=== PATIENT | female | born 1985 | race American Indian/Alaskan Native ===

== ENCOUNTER 2019-02-02 20:42 | Inpatient (IN) | payer OTHER ==
[2019-02-02 21:59] LABS: Basophils % (Auto) 0.7 % (0.0-1.8); Eosinophils % (Auto) 0.1 % (0.0-4.3); Hematocrit 30.4 % (30.3-42.9); Hemoglobin 10.1 gm/dl (10.1-14.3); Lymphocytes # (Auto) 0.8 K/mm3 (1.2-5.4); Lymphocytes % (Auto) 14.3 % (13.4-35.0); Mean Corpuscular HGB Conc 33 % (30-34); Mean Corpuscular Hemoglobin 28 pg (28-32); Mean Corpuscular Volume 85 fl (79-97); Monocytes # (Auto) 0.3 K/mm3 (0.0-0.8); Monocytes % (Auto) 5.8 % (0.0-7.3); Platelet Count 450 K/mm3 (140-440); Red Cell Distribution Width 15.3 % (13.2-15.2)
[2019-02-02 22:12] LABS: BUN/Creatinine Ratio 16; Blood Urea Nitrogen 11 mg/dL (7-17); Calcium 9.5 mg/dL (8.4-10.2); Hemolysis Index 41
[2019-02-02] MEDS ORDERED: NACL 0.9% 1000 ML 1,000 ML IV ONE (22:16)
--- NOTE | 2019-02-02 22:16 | Emergency Department Report ---
ED General Adult HPI - General Chief complaint: Sickle Cell Crisis Stated complaint: SICKLE CRISIS Time Seen by Provider: 02/02/19 22:14 Source: patient Mode of arrival: Ambulatory Limitations: No Limitations - History of Present Illness Initial comments: 33-year-old female with a history of sickle cell anemia presents with the complaint of body pain. Patient states her pain from her sickle cell is primarily in her bilateral legs and lower back. Patient states that she had one episode of vomiting as well. Patient states she was recently admitted for sickle cell complications at [place]. Patient states she took her Toradol and Dilaudid 2 mg therapy with minimal relief of her pain and thus presented here. Patient states the pain is worsened since 4 PM. Patient states that she has no chest pain or shortness of breath. - Related Data Previous Rx's Medication Instructions Recorded Last Taken Type Ibuprofen [Motrin] 400 mg PO Q8H PRN #30 tablet 06/21/14 06/28/14 07:00 Rx Acetaminophen/Codeine 1 tab PO Q6H PRN #20 tab 06/28/14 Unknown Rx [Acetaminophen-Codeine #3 TAB] Bisacodyl [Dulcolax] 10 mg PO DAILY PRN #9 tab 01/21/15 Unknown Rx Ciprofloxacin HCl [Cipro] 500 mg PO Q12H #14 tab 01/21/15 Unknown Rx Ibuprofen [Motrin 800 MG tab] 800 mg PO Q8HR PRN #12 tablet 01/21/15 Unknown Rx HYDROcodone/APAP 5-325 [[place] 1 each PO Q4HR PRN #24 tablet 10/05/15 Unknown Rx 5/325] methOCARBAMOL [Robaxin TAB] 1,500 mg PO TID PRN #15 tab 11/15/15 Unknown Rx Promethazine [Phenergan TAB] 25 mg PO Q6HR PRN #20 tab 04/05/16 Unknown Rx Promethazine [Phenergan] 25 mg HI Q6HR PRN #10 supp.rect 04/05/16 Unknown Rx Sulfamethoxazole/Trimethoprim 1 each PO BID #20 tablet 04/05/16 Unknown Rx [Bactrim DS TAB] traMADol [Ultram] 50 mg PO Q6HR PRN #14 tablet 04/05/16 Unknown Rx oxyCODONE /ACETAMINOPHEN [Percocet 1 tab PO Q6HR PRN #15 tablet 11/01/18 Unknown Rx 5/325] Oxycodone HCl/Acetaminophen 1 each PO Q6HR PRN #12 tablet 11/26/18 Unknown Rx [Percocet 7.5/325 mg] Potassium Chloride 10 meq PO DAILY #5 capsule.er 11/26/18 Unknown Rx predniSONE [Deltasone] 20 mg PO BID #10 tab 12/03/18 Unknown Rx Folic Acid [Folvite] 1 mg PO QDAY #90 tablet 01/10/19 Unknown Rx Ketorolac [Toradol] 10 mg PO Q6H PRN #30 tablet 01/10/19 Unknown Rx oxyCODONE [roxiCODONE] 10 mg PO Q4H PRN 4 Days #20 tablet 01/10/19 Unknown Rx Allergies Allergy/AdvReac Type Severity Reaction Status Date / Time amoxicillin Allergy Swelling Verified 02/02/19 21:16 fentanyl Allergy Swelling Verified 02/02/19 21:16 prednisone AdvReac Hives Verified 02/02/19 21:16 ED Review of Systems ROS: Stated complaint: SICKLE CRISIS Other details as noted in HPI Constitutional: weakness Eyes: denies: eye pain, eye discharge, vision change ENT: denies: ear pain, throat pain Respiratory: denies: cough, shortness of breath, wheezing Cardiovascular: denies: chest pain, palpitations Endocrine: no symptoms reported Gastrointestinal: denies: abdominal pain, nausea, diarrhea Genitourinary: denies: urgency, dysuria, discharge Musculoskeletal: myalgia. denies: back pain, joint swelling, arthralgia Skin: denies: rash, lesions Neurological: denies: headache, weakness, paresthesias Psychiatric: denies: anxiety, depression Hematological/Lymphatic: denies: easy bleeding, easy bruising ED Past Medical Hx - Past Medical History Previous Medical History?: Yes Hx Sickle Cell Disease: Yes Additional medical history: ovarian cysts, miscarriage - Surgical History Past Surgical History?: Yes Additional Surgical History: 2006, 2008, 2009, 2012. tubal ligation 2012 - Social History Smoking Status: Never Smoker Substance Use Type: None - Medications Home Medications: Home Medications Medication Instructions Recorded Confirmed Last Taken Type Ibuprofen [Motrin] 400 mg PO Q8H PRN #30 tablet 06/21/14 06/28/14 06/28/14 07:00 Rx Acetaminophen/Codeine 1 tab PO Q6H PRN #20 tab 06/28/14 Unknown Rx [Acetaminophen-Codeine #3 TAB] Bisacodyl [Dulcolax] 10 mg PO DAILY PRN #9 tab 01/21/15 Unknown Rx Ciprofloxacin HCl [Cipro] 500 mg PO Q12H #14 tab 01/21/15 Unknown Rx Ibuprofen [Motrin 800 MG tab] 800 mg PO Q8HR PRN #12 tablet 01/21/15 Unknown Rx HYDROcodone/APAP 5-325 [[place] 1 each PO Q4HR PRN #24 tablet 10/05/15 Unknown Rx 5/325] methOCARBAMOL [Robaxin TAB] 1,500 mg PO TID PRN #15 tab 11/15/15 Unknown Rx Promethazine [Phenergan TAB] 25 mg PO Q6HR PRN #20 tab 04/05/16 Unknown Rx Promethazine [Phenergan] 25 mg HI Q6HR PRN #10 supp.rect 04/05/16 Unknown Rx Sulfamethoxazole/Trimethoprim 1 each PO BID #20 tablet 04/05/16 Unknown Rx [Bactrim DS TAB] traMADol [Ultram] 50 mg PO Q6HR PRN #14 tablet 04/05/16 Unknown Rx oxyCODONE /ACETAMINOPHEN [Percocet 1 tab PO Q6HR PRN #15 tablet 11/01/18 Unknown Rx 5/325] Oxycodone HCl/Acetaminophen 1 each PO Q6HR PRN #12 tablet 11/26/18 Unknown Rx [Percocet 7.5/325 mg] Potassium Chloride 10 meq PO DAILY #5 capsule.er 11/26/18 Unknown Rx predniSONE [Deltasone] 20 mg PO BID #10 tab 12/03/18 Unknown Rx Folic Acid [Folvite] 1 mg PO QDAY #90 tablet 01/10/19 Unknown Rx Ketorolac [Toradol] 10 mg PO Q6H PRN #30 tablet 01/10/19 Unknown Rx oxyCODONE [roxiCODONE] 10 mg PO Q4H PRN 4 Days #20 tablet 01/10/19 Unknown Rx ED Physical Exam - General Limitations: No Limitations General appearance: alert, other (mildly uncomfortable; mild distress) - Head Head exam: Present: atraumatic, normocephalic - Eye Eye exam: Present: normal appearance - ENT ENT exam: Present: mucous membranes moist - Neck Neck exam: Present: normal inspection - Respiratory Respiratory exam: Present: normal lung sounds bilaterally. Absent: respiratory distress - Cardiovascular Cardiovascular Exam: Present: regular rate, normal rhythm. Absent: systolic murmur, diastolic murmur, rubs, gallop - GI/Abdominal GI/Abdominal exam: Present: soft, normal bowel sounds - Extremities Exam Extremities exam: Present: normal inspection - Back Exam Back exam: Present: normal inspection - Neurological Exam Neurological exam: Present: alert, oriented X3 - Psychiatric Psychiatric exam: Present: normal affect, normal mood - Skin Skin exam: Present: warm, dry, intact, normal color. Absent: rash ED Course Vital Signs 02/02/19 02/02/19 02/02/19 21:16 23:03 23:15 Temperature 99 F Pulse Rate 122 H Respiratory 18 Rate Blood Pressure 105/73 109/63 O2 Sat by Pulse 98 100 96 Oximetry 02/02/19 02/02/19 02/03/19 23:30 23:45 00:00 Temperature Pulse Rate Respiratory Rate Blood Pressure 104/63 111/61 111/61 O2 Sat by Pulse Oximetry 02/03/19 02/03/19 02/03/19 00:15 00:30 00:45 Temperature Pulse Rate Respiratory Rate Blood Pressure 110/67 112/68 118/78 O2 Sat by Pulse Oximetry 02/03/19 02/03/19 02/03/19 01:00 01:17 01:30 Temperature Pulse Rate Respiratory Rate Blood Pressure 111/73 123/65 124/71 O2 Sat by Pulse Oximetry 02/03/19 02/03/19 02/03/19 01:51 02:00 02:15 Temperature Pulse Rate Respiratory Rate Blood Pressure 112/68 113/70 113/70 O2 Sat by Pulse 100 Oximetry ED Medical Decision Making - Lab Data Result diagrams: 02/02/19 21:49 02/02/19 21:49 - Medical Decision Making Patient received fluid hydration with normal saline as well as 4 mg of morphine and 4 mg of Zofran initially. Patient then received 3 rounds of Dilaudid 2 mg and states she continues to have pain and thus presented here to the emergency department for evaluation. Patient to be admitted to the hospitalist service for continued management and treatment as she continues to be in discomfort despite this aggressive management. - Differential Diagnosis Sickle Cell Anemia; Sickle Cell Pain crisis Critical care attestation.: If time is entered above; I have spent that time in minutes in the direct care of this critically ill patient, excluding procedure time. ED Disposition Clinical Impression: Sickle cell anemia Disposition: DC-01 TO HOME OR SELFCARE Is pt being admited?: Yes Does the pt Need Aspirin: No Condition: Fair Time of Disposition: 03:25 Print Language: NORWEGIAN
[2019-02-02] MEDS ORDERED: MORPHINE IV ONE (22:30)
[2019-02-02] MEDS ORDERED: ZOFRAN IV ONE (22:30)
[2019-02-02] MEDS ORDERED: DILAUDID IV ONE (23:28)
[2019-02-02] MEDS ORDERED: BANOPHEN PO ONE (23:29)
[2019-02-03] MEDS ORDERED: DILAUDID IV ONE ×2 (00:25→02:25)
[2019-02-03] MEDS ORDERED: NACL 0.9% 1000 ML 1,000 ML IV ONE (03:20)
--- NOTE | 2019-02-03 03:58 | History and Physical Report ---
History of Present Illness Date of examination: 02/03/19 Date of admission: 02/03/2019 Chief complaint: Sickle cell crisis History of present illness: 33-year-old -[place]vian female with history of sickle cell who presents to [facility] ED with complaints of back pain and bilateral leg pain for the past day. Patient states that her pain is in both legs and back. Also she admits to having nausea and emesis 1. She attempted to take Toradol and Dilaudid 2 mg w ith minimal relief, so she decided to come to the ED for further evaluation and treatment. Patient reports that she was recently admitted at [facility] for sickle cell crisis. 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 A review of medical records shows this patient's second admission within the past month, and her 7th visit to our facility since October 2018. Denies: Shortness of breath, fever, nausea, vomiting, diarrhea, headache, chest pain, cough, or recent sick contact Past History Past Medical History: other (sickle cell, ovarian cyst) Past Surgical History: Other ( (x3 (2006,2007,2009,2012); tubal ligation) Social history: lives with family (marjan with family (recently relocated from [facility] to [place] lives with cousin in [place])) Family history: no significant family history Medications and Allergies Allergies Allergy/AdvReac Type Severity Reaction Status Date / Time amoxicillin Allergy Swelling Verified 02/02/19 21:16 fentanyl Allergy Swelling Verified 02/02/19 21:16 prednisone AdvReac Hives Verified 02/02/19 21:16 Home Medications Medication Instructions Recorded Confirmed Last Taken Type Ibuprofen [Motrin] 400 mg PO Q8H PRN #30 tablet 06/21/14 06/28/14 06/28/14 07:00 Rx Acetaminophen/Codeine 1 tab PO Q6H PRN #20 tab 06/28/14 Unknown Rx [Acetaminophen-Codeine #3 TAB] Bisacodyl [Dulcolax] 10 mg PO DAILY PRN #9 tab 01/21/15 Unknown Rx Ciprofloxacin HCl [Cipro] 500 mg PO Q12H #14 tab 01/21/15 Unknown Rx Ibuprofen [Motrin 800 MG tab] 800 mg PO Q8HR PRN #12 tablet 01/21/15 Unknown Rx HYDROcodone/APAP 5-325 [[place] 1 each PO Q4HR PRN #24 tablet 10/05/15 Unknown Rx 5/325] methOCARBAMOL [Robaxin TAB] 1,500 mg PO TID PRN #15 tab 11/15/15 Unknown Rx Promethazine [Phenergan TAB] 25 mg PO Q6HR PRN #20 tab 04/05/16 Unknown Rx Promethazine [Phenergan] 25 mg DE Q6HR PRN #10 supp.rect 04/05/16 Unknown Rx Sulfamethoxazole/Trimethoprim 1 each PO BID #20 tablet 04/05/16 Unknown Rx [Bactrim DS TAB] traMADol [Ultram] 50 mg PO Q6HR PRN #14 tablet 04/05/16 Unknown Rx oxyCODONE /ACETAMINOPHEN [Percocet 1 tab PO Q6HR PRN #15 tablet 11/01/18 Unknown Rx 5/325] Oxycodone HCl/Acetaminophen 1 each PO Q6HR PRN #12 tablet 11/26/18 Unknown Rx [Percocet 7.5/325 mg] Potassium Chloride 10 meq PO DAILY #5 capsule.er 11/26/18 Unknown Rx predniSONE [Deltasone] 20 mg PO BID #10 tab 12/03/18 Unknown Rx Folic Acid [Folvite] 1 mg PO QDAY #90 tablet 01/10/19 Unknown Rx Ketorolac [Toradol] 10 mg PO Q6H PRN #30 tablet 01/10/19 Unknown Rx oxyCODONE [roxiCODONE] 10 mg PO Q4H PRN 4 Days #20 tablet 01/10/19 Unknown Rx Active Meds: Active Medications Acetaminophen/Hydrocodone Bitart ([place] 10/325) 1 each PO Q4H PRN PRN Reason: Pain, Moderate (4-6) Diphenhydramine HCl (Benadryl) 25 mg IV Q6H PRN PRN Reason: Itching Enoxaparin Sodium (Lovenox) 40 mg SUB-Q QDAY KIM Folic Acid (Folvite) 1 mg PO QDAY KIM Sodium Chloride (Nacl 0.9% 1000 Ml) 1,000 mls @ 999 mls/hr IV BOLUS ONE Stop: 02/03/19 04:20 Dextrose/Sodium Chloride (D5/0.45ns) 1,000 mls @ 125 mls/hr IV DIRECT KIM Morphine Sulfate (Morphine) 4 mg IV Q2H PRN PRN Reason: Pain , Severe (7-10) Stop: 02/04/19 03:46 Multivitamins (Theragran Tab) 1 each PO QDAY KIM Ondansetron HCl (Zofran) 4 mg IV Q8H PRN PRN Reason: Nausea And Vomiting Oxycodone HCl (Oxycontin) 20 mg PO Q8HR KIM Senna (Senokot) 17.2 mg PO QHS KIM Review of Systems All systems: negative (reviewed and no additional remarkable complaints except as noted below) Musculoskeletal: low back pain, other (leg pain, joint stiffness) Exam - Physical Exam Narrative exam: Physical exam General appearance: Present: mild distress, alert and oriented 3, well-develope d -[place]vian female - EENT Eyes: Present: PERRL, EOM intact ENT: hearing intact, normal dentition - Neck Neck: Present: supple, normal ROM - Respiratory Respiratory effort: Non-labored Respiratory: Clear throughout - Cardiovascular Heart rate: 88 (bpm) Rhythm: regular Heart Sounds: Present: S1 & S2. Absent: rub, click - Extremities Extremities: no ischemia, pulses intact, - Peripheral Assessment Peripheral Pulses: within normal limits - Abdominal General gastrointestinal: soft, non-tender, normal bowel sounds - Integumentary Integumentary: Present: warm, dry - Musculoskeletal Musculoskeletal: generalized weakness, joint stiffness -Neurological Neurological: CN II-XII intact - Psychiatric Psychiatric: cooperative - Constitutional Vitals: Temp Pulse Resp BP Pulse Ox 99 F 122 H 18 113/70 100 02/02/19 21:16 02/02/19 21:16 02/02/19 21:16 02/03/19 02:15 02/03/19 02:15 Results - Labs CBC & Chem 7: 02/02/19 21:49 02/02/19 21:49 Labs: Laboratory Last Values WBC 5.8 K/mm3 (4.5-11.0) 02/02/19 21:49 RBC 3.60 M/mm3 (3.65-5.03) L 02/02/19 21:49 Hgb 10.1 gm/dl (10.1-14.3) 02/02/19 21:49 Hct 30.4 % (30.3-42.9) 02/02/19 21:49 MCV 85 fl (79-97) 02/02/19 21:49 MCH 28 pg (28-32) 02/02/19 21:49 MCHC 33 % (30-34) 02/02/19 21:49 RDW 15.3 % (13.2-15.2) H 02/02/19 21:49 Plt Count 450 K/mm3 (140-440) H 02/02/19 21:49 Lymph % (Auto) 14.3 % (13.4-35.0) 02/02/19 21:49 [place] % (Auto) 5.8 % (0.0-7.3) 02/02/19 21:49 Eos % (Auto) 0.1 % (0.0-4.3) 02/02/19 21:49 Baso % (Auto) 0.7 % (0.0-1.8) 02/02/19 21:49 Lymph # 0.8 K/mm3 (1.2-5.4) L 02/02/19 21:49 [place] # 0.3 K/mm3 (0.0-0.8) 02/02/19 21:49 Eos # 0.0 K/mm3 (0.0-0.4) 02/02/19 21:49 Baso # 0.0 K/mm3 (0.0-0.1) 02/02/19 21:49 Seg Neutrophils % 79.1 % (40.0-70.0) H 02/02/19 21:49 Seg Neutrophils # 4.6 K/mm3 (1.8-7.7) 02/02/19 21:49 Percent Retic 1.22 % (0.78-2.58) 02/02/19 21:49 Sodium 142 mmol/L (137-145) 02/02/19 21:49 Potassium 4.0 mmol/L (3.6-5.0) 02/02/19 21:49 Chloride 103.7 mmol/L (98-107) 02/02/19 21:49 Carbon Dioxide 25 mmol/L (22-30) 02/02/19 21:49 17 mmol/L 02/02/19 21:49 BUN 11 mg/dL (7-17) 02/02/19 21:49 0.7 mg/dL (0.7-1.2) 02/02/19 21:49 Estimated GFR > 60 ml/min 02/02/19 21:49 16 % 02/02/19 21:49 Glucose 108 mg/dL (65-100) H 02/02/19 21:49 Calcium 9.5 mg/dL (8.4-10.2) 02/02/19 21:49 Assessment and Plan Assessment and plan: 33-year-old -[place]vian female with history of sickle cell who presents to [facility] ED with complaints of back pain and bilateral leg pain for the past day. On presentation she has hemoglobin 10.1 and reticular count of 1.22. While in the ED, she received IV hydration, IV morphine 4mgx1, IV Zofran 4mg with no relief. She was then given IV Dilaudid 2mg x3, but continues to c/o pain. Will admit to medical floor. 1. Sickle cell crisis -Hydrate with IVF -Monitor reticular count (1.22 on admission) -Monitor Hgb -Monitor electrolytes, replete as needed -Start Folic acid and multivitamin 2. Acute pain-related to sickle cell crisis -Pain management 3. DVT PPX -on Lovenox Advance Directives: No VTE prophylaxis?: Chemical Plan of care discussed with patient/family: Yes
[2019-02-03] MEDS ORDERED: D5/0.45NS 1,000 ML IV SCH (04:00)
[2019-02-03] MEDS ORDERED: IBUPROFEN PO SCH (06:00)
[2019-02-03] MEDS ORDERED: IBUPROFEN ONE (06:30)
[2019-02-03] MEDS: OxyCONTIN PO SCH ×3 (06:45→23:18)
[2019-02-03] MEDS ORDERED: MORPHINE ONE (08:46)
[2019-02-03] MEDS: MORPHINE IV PRN ×2 (08:50→11:54)
[2019-02-03] MEDS ORDERED: BENADRYL ONE (09:04)
[2019-02-03] MEDS: BENADRYL IV PRN ×3 (09:04→21:40)
[2019-02-03] MEDS ORDERED: DIPRIVAN 10 MG/ML IV ONE ×2 (11:33)
[2019-02-03] MEDS: THERAGRAN Tab PO SCH (11:40)
[2019-02-03] MEDS: LOVENOX SUB-Q SCH (11:40)
[2019-02-03] MEDS: FOLVITE PO SCH (11:41)
[2019-02-03] MEDS: D5NS 0.2% 1,000 ML IV SCH (14:22)
--- NOTE | 2019-02-03 15:14 | Progress Note ---
Assessment and Plan Assessment and plan: Patient is a 33-year-old -Finnish female with history of sickle cell who presents to [facility] ED with complaints of back pain and bilateral leg pain for the past day. On presentation she has hemoglobin 10.1 and retic count was 1.22. While in the ED, she received IV hydration, IV morphine 4mgx1, IV Zofran 4mg without relief. She was then given IV Dilaudid 2mg x3, but continues to c/o pain. Will admit to medical floor. 1. Sickle cell crisis -Hydrate with IVF -Monitor reticular count (1.22 on admission) -Monitor Hgb -Monitor electrolytes, replete as needed -Start Folic acid and multivitamin 2. Acute pain-related to sickle cell crisis -Pain management 3. DVT PPX -on Lovenox Advance Directives: No VTE prophylaxis?: Chemical Plan of care discussed with patient/family: Yes History Interval history: Patient was seen and examined. Follow-up on current diagnosis of SS pains crisis with extermity bone pains. No overnight events reported to me. Patient denies any chest pain, shortness breath, nausea/vomiting or severe headaches. Imaging, nursing note, chart, labs and old chart reviewed. Discussed with patient. Hospitalist Physical - Physical exam Narrative exam: Gen: WDWN, NAD, Awake, Alert, Orientated HEENT: NCAT, EOMI, PERRL, OP Clear Neck: supple, no adenopathy, no thyromegaly, no JVD CVS/Heart: RRR, normal S1S2, pulses present bilaterally Chest/Lungs: CTA B, Symmetrical chest expansion, good air entry bilaterally GI/Abdomen: soft, NTND, good bowel sounds, no guarding or rebound /Bladder: no suprapubic tenderness, no CVA or paraspinal tenderness Extermity/Skin: no c/c/e, no obvious rash MSK: FROM x 4 Neuro: CN 2-12 grossly intact, no new focal deficits Psych: calm - Constitutional Vitals: Temp Pulse Resp BP Pulse Ox 98.2 F 81 20 117/75 100 02/03/19 12:46 02/03/19 12:46 02/03/19 12:46 02/03/19 12:46 02/03/19 12:46 Results - Labs CBC & Chem 7: 02/02/19 21:49 02/02/19 21:49 Labs: Laboratory Last Values WBC 5.8 K/mm3 (4.5-11.0) 02/02/19 21:49 RBC 3.60 M/mm3 (3.65-5.03) L 02/02/19 21:49 Hgb 10.1 gm/dl (10.1-14.3) 02/02/19 21:49 Hct 30.4 % (30.3-42.9) 02/02/19 21:49 MCV 85 fl (79-97) 02/02/19 21:49 MCH 28 pg (28-32) 02/02/19 21:49 MCHC 33 % (30-34) 02/02/19 21:49 RDW 15.3 % (13.2-15.2) H 02/02/19 21:49 Plt Count 450 K/mm3 (140-440) H 02/02/19 21:49 Lymph % (Auto) 14.3 % (13.4-35.0) 02/02/19 21:49 [place] % (Auto) 5.8 % (0.0-7.3) 02/02/19 21:49 Eos % (Auto) 0.1 % (0.0-4.3) 02/02/19 21:49 Baso % (Auto) 0.7 % (0.0-1.8) 02/02/19 21:49 Lymph # 0.8 K/mm3 (1.2-5.4) L 02/02/19 21:49 [place] # 0.3 K/mm3 (0.0-0.8) 02/02/19 21:49 Eos # 0.0 K/mm3 (0.0-0.4) 02/02/19 21:49 Baso # 0.0 K/mm3 (0.0-0.1) 02/02/19 21:49 Seg Neutrophils % 79.1 % (40.0-70.0) H 02/02/19 21:49 Seg Neutrophils # 4.6 K/mm3 (1.8-7.7) 02/02/19 21:49 Percent Retic 1.22 % (0.78-2.58) 02/02/19 21:49 Sodium 142 mmol/L (137-145) 02/02/19 21:49 Potassium 4.0 mmol/L (3.6-5.0) 02/02/19 21:49 Chloride 103.7 mmol/L (98-107) 02/02/19 21:49 Carbon Dioxide 25 mmol/L (22-30) 02/02/19 21:49 17 mmol/L 02/02/19 21:49 BUN 11 mg/dL (7-17) 02/02/19 21:49 0.7 mg/dL (0.7-1.2) 02/02/19 21:49 Estimated GFR > 60 ml/min 02/02/19 21:49 16 % 02/02/19 21:49 Glucose 108 mg/dL (65-100) H 02/02/19 21:49 Calcium 9.5 mg/dL (8.4-10.2) 02/02/19 21:49 Active Medications - Current Medications Current Medications: Generic Name Dose Route Start Last Admin Trade Name Freq PRN Reason Stop Dose Admin Acetaminophen/Hydrocodone Bitart 1 each 02/03/19 03:47 [place] 10/325 PO Q4H PRN Pain, Moderate (4-6) Diphenhydramine HCl 25 mg 02/03/19 03:47 02/03/19 09:04 Benadryl IV 25 mg Q6H PRN Administration Itching Enoxaparin Sodium 40 mg 02/03/19 10:00 02/03/19 11:40 Lovenox SUB-Q 40 mg QDAY KIM Administration Folic Acid 1 mg 02/03/19 10:00 02/03/19 11:41 Folvite PO 1 mg QDAY KIM Administration Hydromorphone HCl 2 mg 02/03/19 12:38 Dilaudid IV Q3H PRN Pain , Severe (7-10) Dextrose/Sodium Chloride 1,000 mls @ 100 mls/hr 02/03/19 13:00 02/03/19 14:22 D5ns 0.2% IV 100 mls/hr DIRECT KIM Administration Multivitamins 1 each 02/03/19 10:00 02/03/19 11:40 Theragran Tab PO 1 each QDAY KIM Administration Ondansetron HCl 4 mg 02/03/19 03:47 Zofran IV Q8H PRN Nausea And Vomiting Oxycodone HCl 20 mg 02/03/19 06:00 02/03/19 14:18 Oxycontin PO 20 mg Q8HR KIM Administration Senna 17.2 mg 02/03/19 22:00 Senokot PO QHS KIM
[2019-02-03] MEDS: DILAUDID IV PRN ×2 (15:35→20:06)
[2019-02-03] MEDS: SENOKOT PO SCH (23:16)
[2019-02-04] MEDS: ZOFRAN IV PRN ×3 (01:31→21:11)
[2019-02-04] MEDS: DILAUDID IV PRN ×6 (01:32→21:08)
[2019-02-04 03:39] LABS: Basophils % (Auto) 0.7 % (0.0-1.8); Eosinophils # (Auto) 0.1 K/mm3 (0.0-0.4); Hematocrit 28.1 % (30.3-42.9); Lymphocytes # (Auto) 1.7 K/mm3 (1.2-5.4); Lymphocytes % (Auto) 36.1 % (13.4-35.0); Mean Corpuscular HGB Conc 32 % (30-34); Mean Corpuscular Hemoglobin 27 pg (28-32); Mean Corpuscular Volume 85 fl (79-97); Monocytes # (Auto) 0.5 K/mm3 (0.0-0.8); Monocytes % (Auto) 10.7 % (0.0-7.3); Platelet Count 338 K/mm3 (140-440); Red Cell Distribution Width 15.3 % (13.2-15.2)
[2019-02-04] MEDS: OxyCONTIN PO SCH ×3 (06:18→21:08)
[2019-02-04] MEDS: THERAGRAN Tab PO SCH (10:39)
[2019-02-04] MEDS: FOLVITE PO SCH (10:39)
[2019-02-04] MEDS: LOVENOX SUB-Q SCH (10:40)
[2019-02-04] MEDS: BENADRYL IV PRN ×2 (11:07→17:47)
--- NOTE | 2019-02-04 14:22 | Progress Note ---
Assessment and Plan Assessment and plan: Patient is a 33-year-old -[place] female with history of sickle cell who presents to [facility] ED with complaints of back pain and bilateral leg pain for the past day. On presentation she has hemoglobin 10.1 and retic count was 1.22. While in the ED, she received IV hydration, IV morphine 4mgx1, IV Zofran 4mg without relief. She was then given IV Dilaudid 2mg x3, but continues to c/o pain. Will admit to medical floor. 1. Sickle cell crisis -Hydrate with IVF -Monitor reticular count (1.22 on admission) -Monitor Hgb -Monitor electrolytes, replete as needed -Start Folic acid and multivitamin 2. Acute pain-related to sickle cell crisis -Pain management 3. DVT PPX -on Lovenox Advance Directives: No VTE prophylaxis?: Chemical Plan of care discussed with patient/family: Yes History Interval history: Patient was seen and examined. Follow-up on current diagnosis of SS pains crisis with extermity bone pains. No overnight events reported to me. Patient denies any chest pain, shortness breath, nausea/vomiting or severe headaches. Imaging, nursing note, chart, labs and old chart reviewed. Discussed with patient. Hospitalist Physical - Physical exam Narrative exam: Gen: WDWN, NAD, Awake, Alert, Orientated HEENT: NCAT, EOMI, PERRL, OP Clear Neck: supple, no adenopathy, no thyromegaly, no JVD CVS/Heart: RRR, normal S1S2, pulses present bilaterally Chest/Lungs: CTA B, Symmetrical chest expansion, good air entry bilaterally GI/Abdomen: soft, NTND, good bowel sounds, no guarding or rebound /Bladder: no suprapubic tenderness, no CVA or paraspinal tenderness Extermity/Skin: no c/c/e, no obvious rash MSK: FROM x 4 Neuro: CN 2-12 grossly intact, no new focal deficits Psych: calm - Constitutional Vitals: Temp Pulse Resp BP Pulse Ox 98.7 F 71 20 115/61 100 02/04/19 12:15 02/04/19 12:15 02/04/19 12:15 02/04/19 12:15 02/04/19 12:15 Results - Labs CBC & Chem 7: 02/04/19 03:25 02/02/19 21:49 Labs: Laboratory Last Values WBC 4.6 K/mm3 (4.5-11.0) 02/04/19 03:25 RBC 3.30 M/mm3 (3.65-5.03) L 02/04/19 03:25 Hgb 9.0 gm/dl (10.1-14.3) L 02/04/19 03:25 Hct 28.1 % (30.3-42.9) L 02/04/19 03:25 MCV 85 fl (79-97) 02/04/19 03:25 MCH 27 pg (28-32) L 02/04/19 03:25 MCHC 32 % (30-34) 02/04/19 03:25 RDW 15.3 % (13.2-15.2) H 02/04/19 03:25 Plt Count 338 K/mm3 (140-440) 02/04/19 03:25 Lymph % (Auto) 36.1 % (13.4-35.0) H 02/04/19 03:25 White % (Auto) 10.7 % (0.0-7.3) H 02/04/19 03:25 Eos % (Auto) 2.0 % (0.0-4.3) 02/04/19 03:25 Baso % (Auto) 0.7 % (0.0-1.8) 02/04/19 03:25 Lymph # 1.7 K/mm3 (1.2-5.4) 02/04/19 03:25 White # 0.5 K/mm3 (0.0-0.8) 02/04/19 03:25 Eos # 0.1 K/mm3 (0.0-0.4) 02/04/19 03:25 Baso # 0.0 K/mm3 (0.0-0.1) 02/04/19 03:25 Seg Neutrophils % 50.5 % (40.0-70.0) 02/04/19 03:25 Seg Neutrophils # 2.3 K/mm3 (1.8-7.7) 02/04/19 03:25 Percent Retic 1.49 % (0.78-2.58) 02/04/19 03:25 Sodium 142 mmol/L (137-145) 02/02/19 21:49 Potassium 4.0 mmol/L (3.6-5.0) 02/02/19 21:49 Chloride 103.7 mmol/L (98-107) 02/02/19 21:49 Carbon Dioxide 25 mmol/L (22-30) 02/02/19 21:49 17 mmol/L 02/02/19 21:49 BUN 11 mg/dL (7-17) 02/02/19 21:49 0.7 mg/dL (0.7-1.2) 02/02/19 21:49 Estimated GFR > 60 ml/min 02/02/19 21:49 16 % 02/02/19 21:49 Glucose 108 mg/dL (65-100) H 02/02/19 21:49 Calcium 9.5 mg/dL (8.4-10.2) 02/02/19 21:49 145 units/L (91-180) 02/04/19 03:25 Active Medications - Current Medications Current Medications: Generic Name Dose Route Start Last Admin Trade Name Freq PRN Reason Stop Dose Admin Acetaminophen/Hydrocodone Bitart 1 each 02/03/19 03:47 Mears 10/325 PO Q4H PRN Pain, Moderate (4-6) Diphenhydramine HCl 25 mg 02/03/19 03:47 02/04/19 11:07 Benadryl IV 25 mg Q6H PRN Administration Itching Enoxaparin Sodium 40 mg 02/03/19 10:00 02/04/19 10:40 Lovenox SUB-Q 40 mg QDAY KIM Administration Folic Acid 1 mg 02/03/19 10:00 02/04/19 10:39 Folvite PO 1 mg QDAY KIM Administration Hydromorphone HCl 2 mg 02/03/19 12:38 02/04/19 13:46 Dilaudid IV 2 mg Q3H PRN Administration Pain , Severe (7-10) Dextrose/Sodium Chloride 1,000 mls @ 100 mls/hr 02/03/19 13:00 02/03/19 14:22 D5ns 0.2% IV 100 mls/hr DIRECT KIM Administration Multivitamins 1 each 02/03/19 10:00 02/04/19 10:39 Theragran Tab PO 1 each QDAY KIM Administration Ondansetron HCl 4 mg 02/03/19 03:47 02/04/19 10:39 Zofran IV 4 mg Q8H PRN Administration Nausea And Vomiting Oxycodone HCl 20 mg 02/03/19 06:00 02/04/19 13:46 Oxycontin PO 20 mg Q8HR KIM Administration Senna 17.2 mg 02/03/19 22:00 02/03/19 23:16 Senokot PO 17.2 mg QHS KIM Administration
[2019-02-04] MEDS: D5NS 0.2% 1,000 ML IV SCH ×2 (14:55→21:07)
[2019-02-04] MEDS ORDERED: BANOPHEN ANTI-ITCH TP PRN (17:44)
[2019-02-04] MEDS: SENOKOT PO SCH (21:07)
[2019-02-05] MEDS: BENADRYL IV PRN ×4 (00:11→21:28)
[2019-02-05] MEDS: DILAUDID IV PRN ×6 (01:59→23:44)
[2019-02-05] MEDS: NORCO 10/325 PO PRN ×2 (03:25→09:29)
[2019-02-05] MEDS: D5NS 0.2% 1,000 ML IV SCH ×4 (03:28→23:44)
[2019-02-05] MEDS: OxyCONTIN PO SCH ×3 (07:26→21:27)
[2019-02-05] MEDS: ZOFRAN IV PRN ×3 (07:42→21:28)
[2019-02-05 08:46] LABS: Basophils % (Auto) 1.1 % (0.0-1.8); Eosinophils # (Auto) 0.1 K/mm3 (0.0-0.4); Eosinophils % (Auto) 1.7 % (0.0-4.3); Hemoglobin 9.2 gm/dl (10.1-14.3); Lymphocytes # (Auto) 1.4 K/mm3 (1.2-5.4); Lymphocytes % (Auto) 35.6 % (13.4-35.0); Mean Corpuscular HGB Conc 33 % (30-34); Mean Corpuscular Hemoglobin 28 pg (28-32); Mean Corpuscular Volume 84 fl (79-97); Monocytes # (Auto) 0.3 K/mm3 (0.0-0.8); Monocytes % (Auto) 8.3 % (0.0-7.3); Platelet Count 376 K/mm3 (140-440); Red Blood Count 3.32 M/mm3 (3.65-5.03); Red Cell Distribution Width 15.1 % (13.2-15.2)
[2019-02-05] MEDS: THERAGRAN Tab PO SCH (09:23)
[2019-02-05] MEDS: FOLVITE PO SCH (09:23)
[2019-02-05] MEDS: LOVENOX SUB-Q SCH (09:33)
--- NOTE | 2019-02-05 15:04 | Progress Note ---
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 On presentation she has hemoglobin 10.1 and retic count was 1.22. While in the ED, she received IV hydration, IV morphine 4mg x1, IV Zofran 4mg without relief. She was then given IV Dilaudid 2mg x3, but continues to c/o pain. Will admit to medical floor. 1. Sickle cell crisis -Hydrate with IVF -Monitor reticular count (1.22 on admission) -Monitor Hgb -Monitor electrolytes, replete as needed -Start Folic acid and multivitamin 2. Acute pain-related to sickle cell crisis -Pain management 3. DVT PPX -on Lovenox Advance Directives: No VTE prophylaxis?: Chemical Plan of care discussed with patient/family: Yes Disposition: continue inpatient care, anticipate d/c in AM History Interval history: Patient was seen and examined. Follow-up on current diagnosis of SS pains crisis with extermity bone pains. No overnight events reported to me. Patient denies any chest pain, shortness breath, nausea/vomiting or severe headaches. Imaging, nursing note, chart, labs and old chart reviewed. Discussed with patient. Hospitalist Physical - Physical exam Narrative exam: Gen: WDWN, NAD, Awake, Alert, Orientated HEENT: NCAT, EOMI, PERRL, OP Clear Neck: supple, no adenopathy, no thyromegaly, no JVD CVS/Heart: RRR, normal S1S2, pulses present bilaterally Chest/Lungs: CTA B, Symmetrical chest expansion, good air entry bilaterally GI/Abdomen: soft, NTND, good bowel sounds, no guarding or rebound /Bladder: no suprapubic tenderness, no CVA or paraspinal tenderness Extermity/Skin: no c/c/e, no obvious rash MSK: FROM x 4 Neuro: CN 2-12 grossly intact, no new focal deficits Psych: calm - Constitutional Vitals: Temp Pulse Resp BP Pulse Ox 98.8 F 90 16 125/66 98 02/05/19 12:46 02/05/19 12:46 02/05/19 12:46 02/05/19 12:46 02/05/19 12:46 Results - Labs CBC & Chem 7: 02/05/19 08:06 02/02/19 21:49 Labs: Laboratory Last Values WBC 3.9 K/mm3 (4.5-11.0) L 02/05/19 08:06 RBC 3.32 M/mm3 (3.65-5.03) L 02/05/19 08:06 Hgb 9.2 gm/dl (10.1-14.3) L 02/05/19 08:06 Hct 28.0 % (30.3-42.9) L 02/05/19 08:06 MCV 84 fl (79-97) 02/05/19 08:06 MCH 28 pg (28-32) 02/05/19 08:06 MCHC 33 % (30-34) 02/05/19 08:06 RDW 15.1 % (13.2-15.2) 02/05/19 08:06 Plt Count 376 K/mm3 (140-440) 02/05/19 08:06 Lymph % (Auto) 35.6 % (13.4-35.0) H 02/05/19 08:06 [place] % (Auto) 8.3 % (0.0-7.3) H 02/05/19 08:06 Eos % (Auto) 1.7 % (0.0-4.3) 02/05/19 08:06 Baso % (Auto) 1.1 % (0.0-1.8) 02/05/19 08:06 Lymph # 1.4 K/mm3 (1.2-5.4) 02/05/19 08:06 [place] # 0.3 K/mm3 (0.0-0.8) 02/05/19 08:06 Eos # 0.1 K/mm3 (0.0-0.4) 02/05/19 08:06 Baso # 0.0 K/mm3 (0.0-0.1) 02/05/19 08:06 Seg Neutrophils % 53.3 % (40.0-70.0) 02/05/19 08:06 Seg Neutrophils # 2.1 K/mm3 (1.8-7.7) 02/05/19 08:06 Percent Retic 1.65 % (0.78-2.58) 02/05/19 08:06 Sodium 142 mmol/L (137-145) 02/02/19 21:49 Potassium 4.0 mmol/L (3.6-5.0) 02/02/19 21:49 Chloride 103.7 mmol/L (98-107) 02/02/19 21:49 Carbon Dioxide 25 mmol/L (22-30) 02/02/19 21:49 17 mmol/L 02/02/19 21:49 BUN 11 mg/dL (7-17) 02/02/19 21:49 0.7 mg/dL (0.7-1.2) 02/02/19 21:49 Estimated GFR > 60 ml/min 02/02/19 21:49 16 % 02/02/19 21:49 Glucose 108 mg/dL (65-100) H 02/02/19 21:49 Calcium 9.5 mg/dL (8.4-10.2) 02/02/19 21:49 257 units/L (91-180) H 02/05/19 08:06 Active Medications - Current Medications Current Medications: Generic Name Dose Route Start Last Admin Trade Name Freq PRN Reason Stop Dose Admin Acetaminophen/Hydrocodone Bitart 1 each 02/03/19 03:47 02/05/19 09:29 Kodak 10/325 PO 1 each Q4H PRN Administration Pain, Moderate (4-6) Diphenhydramine HCl 25 mg 02/03/19 03:47 02/05/19 14:19 Benadryl IV 25 mg Q6H PRN Administration Itching Enoxaparin Sodium 40 mg 02/03/19 10:00 02/05/19 09:33 Lovenox SUB-Q 40 mg QDAY KIM Administration Folic Acid 1 mg 02/03/19 10:00 02/05/19 09:23 Folvite PO 1 mg QDAY KIM Administration Hydromorphone HCl 2 mg 02/03/19 12:38 02/05/19 12:37 Dilaudid IV 2 mg Q3H PRN Administration Pain , Severe (7-10) Dextrose/Sodium Chloride 1,000 mls @ 100 mls/hr 02/03/19 13:00 02/05/19 09:35 D5ns 0.2% IV 100 mls/hr DIRECT KIM Administration Multivitamins 1 each 02/03/19 10:00 02/05/19 09:23 Theragran Tab PO 1 each QDAY KIM Administration Ondansetron HCl 4 mg 02/03/19 03:47 02/05/19 14:19 Zofran IV 4 mg Q8H PRN Administration Nausea And Vomiting Oxycodone HCl 20 mg 02/03/19 06:00 02/05/19 14:18 Oxycontin PO 20 mg Q8HR KIM Administration Senna 17.2 mg 02/03/19 22:00 02/04/19 21:07 Senokot PO 17.2 mg QHS KIM Administration Zinc Acetate/Diphenhydramine 1 applic 02/04/19 17:44 Banophen Anti-Itch TP Q6H PRN Itching
[2019-02-05] MEDS: SENOKOT PO SCH (21:27)
[2019-02-06] MEDS: DILAUDID IV PRN ×4 (02:46→15:05)
[2019-02-06 05:52] LABS: Basophils % (Auto) 0.8 % (0.0-1.8); Eosinophils # (Auto) 0.1 K/mm3 (0.0-0.4); Eosinophils % (Auto) 1.3 % (0.0-4.3); Hematocrit 28.3 % (30.3-42.9); Hemoglobin 9.2 gm/dl (10.1-14.3); Lymphocytes # (Auto) 1.4 K/mm3 (1.2-5.4); Lymphocytes % (Auto) 26.4 % (13.4-35.0); Mean Corpuscular HGB Conc 33 % (30-34); Mean Corpuscular Hemoglobin 27 pg (28-32); Mean Corpuscular Volume 84 fl (79-97); Monocytes # (Auto) 0.4 K/mm3 (0.0-0.8); Monocytes % (Auto) 8.5 % (0.0-7.3); Platelet Count 373 K/mm3 (140-440); Red Blood Count 3.37 M/mm3 (3.65-5.03); Red Cell Distribution Width 14.8 % (13.2-15.2)
[2019-02-06] MEDS: OxyCONTIN PO SCH ×2 (05:56→15:04)
[2019-02-06] MEDS: ZOFRAN IV PRN (06:00)
[2019-02-06] MEDS: D5NS 0.2% 1,000 ML IV SCH (06:00)
[2019-02-06] MEDS: BENADRYL IV PRN ×2 (07:58→15:04)
[2019-02-06] MEDS ORDERED: ZOFRAN IV PRN (09:37)
[2019-02-06] MEDS: NORCO 10/325 PO PRN (09:44)
[2019-02-06] MEDS: REGLAN PO SCH ×2 (11:33→18:39)
[2019-02-06] MEDS: FOLVITE PO SCH (11:39)
[2019-02-06] MEDS: THERAGRAN Tab PO SCH (11:39)
[2019-02-06] MEDS: LOVENOX SUB-Q SCH (11:39)
[2019-02-06] MEDS ORDERED: NORCO 10/325 PO PRN (15:30)
[2019-02-06] MEDS ORDERED: ULTRAM PO PRN (15:30)
[2019-02-06] MEDS ORDERED: DULCOLAX PO PRN (15:30)
[2019-02-06] MEDS ORDERED: IBUPROFEN PO PRN (15:30)
--- NOTE | 2019-02-06 15:47 | Discharge Summary ---
Providers - Providers Date of Admission: 02/05/19 15:01 Date of discharge: 02/06/19 Attending physician: JACLYN VALIENTE Primary care physician: PHARMACY CASHIER Hospitalization Condition: Fair Hospital course: Discharge Diagnosis: 1. Sickle cell crisis -Hydrate with IVF -Monitor reticular count (1.22 on admission) -Monitor Hgb -Monitor electrolytes, replete as needed -Start Folic acid and multivitamin 2. Acute pain-related to sickle cell crisis -Pain management 3. DVT PPX -on Lovenox Advance Directives: No VTE prophylaxis?: Chemical Plan of care discussed with patient/family: Yes Disposition: continue inpatient care, anticipate d/c in AM Brief History Patient is a 33-year-old -[place] woman who is a [employer] with history of sickle cell who presents to [facility] ED with complaints of back pain and bilateral leg pain for the past day. On presentation she has hemoglobin 10.1 and retic count was 1.22. While in the ED, she received IV hydration, IV morphine 4mg x1, IV Zofran 4mg without relief. She was then given IV Dilaudid 2mg x3, but continues to c/o pain. Will admit to medical floor. Hospitalist Physical Gen: WDWN, NAD, Awake, Alert, Orientated HEENT: NCAT, EOMI, PERRL, OP Clear Neck: supple, no adenopathy, no thyromegaly, no JVD CVS/Heart: RRR, normal S1S2, pulses present bilaterally Chest/Lungs: CTA B, Symmetrical chest expansion, good air entry bilaterally GI/Abdomen: soft, NTND, good bowel sounds, no guarding or rebound /Bladder: no suprapubic tenderness, no CVA or paraspinal tenderness Extermity/Skin: no c/c/e, no obvious rash MSK: FROM x 4 Neuro: CN 2-12 grossly intact, no new focal deficits Psych: calm Disposition: - TO HOME OR SELFCARE Time spent for discharge: 34 minutes Core Measure Documentation - Palliative Care Palliative Care/ Comfort Measures: Not Applicable - Core Measures Any of the following diagnoses?: none Exam - Constitutional Vitals: Temp Pulse Resp BP Pulse Ox 98.7 F 82 15 89/53 99 02/06/19 05:42 02/06/19 05:42 02/06/19 05:42 02/06/19 05:42 02/06/19 05:42 Plan Activity: advance as tolerated Weight Bearing Status: Weight Bear as Tolerated Diet: regular Follow up with: PRIMARY CARE, [Primary Care Provider] - 3-5 Days SHAHNAZ RAMÍREZ MD [Staff Physician] - 7 Days Prescriptions: Folic Acid [Folvite] 1 mg PO QDAY #90 tablet Ibuprofen [Motrin 800 MG tab] 800 mg PO Q8HR PRN #12 tablet PRN Reason: Mild Pain Metoclopramide [Reglan TAB] 5 mg PO ACHS #14 tablet traMADol [Ultram 50 MG tab] 50 mg PO Q6HR PRN #10 tablet PRN Reason: Pain
--- NOTE | 2019-02-06 16:00 | Event Note ---
Date: 02/06/19
[2019-02-06 19:30] VITALS: BP 123/78
[2019-02-07] MEDS ORDERED: FOLVITE PO SCH (10:00)
== END 2019-02-06 19:55 | disposition home or self-care (01) | DRG 812 ==
LOC: ED 20:42 → 3A 02-03 04:37 → INTOOBSV 02-03 04:37 → 3A 02-03 08:23 → OBSVTOIN 02-05 15:01
PROVIDERS: ADMIT Internal Medicine; ATTEND Internal Medicine
DX: D57.00 Hb-SS disease with crisis, unspecified (principal); Z88.1 Allergy status to other antibiotic agents; Z88.8 Allergy status to other drugs, medicaments and biological substances; Z98.51 Tubal ligation status; Z79.899 Other long term (current) drug therapy
CPT/HCPCS: 36415; 80048; 83615; 85025; 85045; 96374; 96375; 96376; G0378; J1170; J1200; J1650; J2270; J2405; J2704; J7030; Q0163

== ENCOUNTER 2019-02-06 20:20 | Emergency (ER) | payer OTHER ==
--- NOTE | 2019-02-06 20:27 | Event Note ---
ED Screening Note Date of service: 02/06/19 Time: 20:24 ED Screening Note: This is a 33 y.o. F. that presents to the ER with generalized pain from sickle cell for 2 hours. She took pain medication with no improvement of symptoms. PMH sickle cell and seizures This initial assessment/diagnostic orders/clinical plan/treatment(s) is/are subject to change based on patients health status, clinical progression and re- assessment by fellow clinical providers in the ED. Further treatment and workup at subsequent clinical providers discretion. Patient/guardian urged not to elope from the ED as their condition may be serious if not clinically assessed and managed. Initial orders include: Labs and cxr
[2019-02-06] MEDS ORDERED: MORPHINE IV ONE (20:54)
[2019-02-06] MEDS ORDERED: NACL 0.9% 1000 ML 1,000 ML IV ONE (20:54)
[2019-02-06] MEDS ORDERED: ZOFRAN IV ONE (20:54)
--- NOTE | 2019-02-06 20:56 | Emergency Department Report ---
ED General Adult HPI - General Chief complaint: Sickle Cell Crisis Stated complaint: SICKLE CELL CRISIS Time Seen by Provider: 02/06/19 20:24 Source: patient Mode of arrival: Ambulatory Limitations: No Limitations - History of Present Illness Initial comments: Patient is 33 years old female with history of sickle cell disease. Patient presented to the ER complaining of generalized body pain. Patient stated that pain started this morning in her legs and then it spread to the back and to the rest of the body. Patient denied any fever or chills. She denied any chest pain or abdominal pain or shortness of breath. - Related Data Previous Rx's Medication Instructions Recorded Last Taken Type Bisacodyl [Dulcolax tab] 10 mg PO DAILY PRN #9 tab 01/21/15 02/03/19 08:00 Rx Folic Acid [Folvite] 1 mg PO QDAY #90 tablet 02/06/19 Unknown Rx Ibuprofen [Motrin 800 MG tab] 800 mg PO Q8HR PRN #12 tablet 02/06/19 Unknown Rx Metoclopramide [Reglan TAB] 5 mg PO ACHS #14 tablet 02/06/19 Unknown Rx traMADol [Ultram 50 MG tab] 50 mg PO Q6HR PRN #10 tablet 02/06/19 Unknown Rx Allergies Allergy/AdvReac Type Severity Reaction Status Date / Time amoxicillin Allergy Swelling Verified 02/02/19 21:16 fentanyl Allergy Swelling Verified 02/02/19 21:16 prednisone AdvReac Hives Verified 02/02/19 21:16 ED Review of Systems ROS: Stated complaint: SICKLE CELL CRISIS Other details as noted in HPI Comment: All other systems reviewed and negative Constitutional: denies: chills, fever Respiratory: denies: cough, orthopnea, shortness of breath, SOB with exertion, SOB at rest Cardiovascular: denies: chest pain Gastrointestinal: denies: abdominal pain, nausea, vomiting Musculoskeletal: back pain, arthralgia, myalgia Neurological: denies: headache, weakness, numbness, paresthesias, confusion ED Past Medical Hx - Past Medical History Previous Medical History?: Yes Hx Sickle Cell Disease: Yes Hx Seizures: Yes Additional medical history: ovarian cysts, miscarriage - Surgical History Past Surgical History?: Yes Additional Surgical History: 2006, 2008, 2009, 2012. tubal ligation 2012 - Social History Smoking Status: Never Smoker Substance Use Type: None - Medications Home Medications: Home Medications Medication Instructions Recorded Confirmed Last Taken Type Bisacodyl [Dulcolax tab] 10 mg PO DAILY PRN #9 tab 01/21/15 02/04/19 02/03/19 08:00 Rx Folic Acid [Folvite] 1 mg PO QDAY #90 tablet 02/06/19 Unknown Rx Ibuprofen [Motrin 800 MG tab] 800 mg PO Q8HR PRN #12 tablet 02/06/19 Unknown Rx Metoclopramide [Reglan TAB] 5 mg PO ACHS #14 tablet 02/06/19 Unknown Rx traMADol [Ultram 50 MG tab] 50 mg PO Q6HR PRN #10 tablet 02/06/19 Unknown Rx ED Physical Exam - General Limitations: No Limitations General appearance: alert, in no apparent distress - Head Head exam: Present: atraumatic, normocephalic - ENT ENT exam: Present: normal exam, normal orophraynx, mucous membranes moist - Neck Neck exam: Present: normal inspection, full ROM. Absent: tenderness, meningismus, lymphadenopathy, thyromegaly - Respiratory Respiratory exam: Present: normal lung sounds bilaterally. Absent: respiratory distress, wheezes, rales, chest wall tenderness, accessory muscle use - Cardiovascular Cardiovascular Exam: Present: regular rate, tachycardia - GI/Abdominal GI/Abdominal exam: Present: soft, normal bowel sounds. Absent: distended, tenderness, guarding, rebound, rigid - Extremities Exam Extremities exam: Present: normal inspection, full ROM, normal capillary refill. Absent: pedal edema, calf tenderness - Back Exam Back exam: Present: normal inspection, full ROM. Absent: CVA tenderness (R), CVA tenderness (L) - Neurological Exam Neurological exam: Present: alert, oriented X3, CN II-XII intact, normal gait, reflexes normal - Psychiatric Psychiatric exam: Present: normal mood - Skin Skin exam: Present: warm, intact, normal color ED Course Vital Signs 02/06/19 02/06/19 20:25 21:12 Temperature 98.9 F Pulse Rate 122 H Respiratory 18 18 Rate Blood Pressure 125/84 O2 Sat by Pulse 100 Oximetry ED Medical Decision Making - Lab Data Result diagrams: 02/06/19 20:37 02/06/19 20:37 - Medical Decision Making Patient is 33 years old female with history of sickle cell disease. Patient presented to the ER complaining of generalized body pain. Patient stated that pain started this morning in her legs and then it spread to the back and to the rest of the body. Patient denied any fever or chills. She denied any chest pain or abdominal pain or shortness of breath. Patient received 1 L of normal saline, morphine and Zofran. Patient in no acute distress, playing on her form and eating chips. Reticulocyte count is 1.08. No evidence of crisis. Patient is showing behavior of narcotics and seeking. 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 Critical care attestation.: If time is entered above; I have spent that time in minutes in the direct care of this critically ill patient, excluding procedure time. ED Disposition Clinical Impression: Sickle cell anemia, Drug-seeking behavior Disposition: DC-01 TO HOME OR SELFCARE Is pt being admited?: No Condition: Stable Instructions: Normal Exam (ED) Referrals: PRIMARY CARE, [Primary Care Provider] - 3-5 Days
[2019-02-06 20:59] LABS: Basophils % (Auto) 0.4 % (0.0-1.8); Eosinophils % (Auto) 0.7 % (0.0-4.3); Hematocrit 28.7 % (30.3-42.9); Hemoglobin 9.8 gm/dl (10.1-14.3); Lymphocytes # (Auto) 1.6 K/mm3 (1.2-5.4); Lymphocytes % (Auto) 31.5 % (13.4-35.0); Mean Corpuscular HGB Conc 34 % (30-34); Mean Corpuscular Volume 84 fl (79-97); Monocytes # (Auto) 0.4 K/mm3 (0.0-0.8); Monocytes % (Auto) 7.9 % (0.0-7.3); Platelet Count 433 K/mm3 (140-440); Red Blood Count 3.41 M/mm3 (3.65-5.03); Red Cell Distribution Width 15.1 % (13.2-15.2)
[2019-02-06 21:15] LABS: BUN/Creatinine Ratio 10; Blood Urea Nitrogen 7 mg/dL (7-17); Calcium 9.3 mg/dL (8.4-10.2); Hemolysis Index 1
[2019-02-06 22:09] LABS: Bacteria,Urine 1+ /HPF (Negative); Bilirubin,Urine NEG (Negative); Blood,Urine NEG (Negative); Color,Urine Straw (Yellow); Protein,Urine <15 mg/dL mg/dL (Negative); Urobilinogen,Urine < 2.0 mg/dL (<2.0)
--- NOTE | 2019-02-06 22:39 | XRay Report ---
CHEST 1 VIEW INDICATION / CLINICAL INFORMATION: chest discomfort;. COMPARISON: 01/15/2019 chest radiograph FINDINGS: SUPPORT DEVICES: None. HEART / MEDIASTINUM: No significant abnormality. LUNGS / PLEURA: No significant pulmonary or pleural abnormality. No pneumothorax. ADDITIONAL FINDINGS: No significant additional findings. IMPRESSION: 1. No acute findings. Signer Name: Jaime Coombs MD Signed: 02/06/2019 10:34 PM Workstation Name: [id number]
[2019-02-06 23:47] VITALS: BP 118/79
== END 2019-02-06 23:20 | disposition home or self-care (01) ==
LOC: ED 20:20
DX: D57.00 Hb-SS disease with crisis, unspecified (principal); Z72.89 Other problems related to lifestyle; Z98.51 Tubal ligation status; Z79.899 Other long term (current) drug therapy; Z88.1 Allergy status to other antibiotic agents; Z88.8 Allergy status to other drugs, medicaments and biological substances
CPT/HCPCS: 36415; 71045; 80048; 81001; 84703; 85025; 85045; 87086; 96374; 96375; 99284; J2270; J2405; J7030